=== PATIENT | female | born 1945 | race Caucasian/White ===

== ENCOUNTER → 2021-12-27 | Outpatient (CLI) | payer MEDICARE, BC | LOC: M RAD 09:00 | PROVIDERS: ATTEND Family Medicine | DX: Z12.2 Encounter for screening for malignant neoplasm of respiratory organs (principal); F17.211 Nicotine dependence, cigarettes, in remission; R91.8 Other nonspecific abnormal finding of lung field ==

== ENCOUNTER 2024-11-16 05:57 | Inpatient (IN) | payer MEDICARE, BC ==
[~2024-11-16] VITALS: Ht 152.4 cm; Wt 80.5 kg
[2024-11-16] VITALS (8 sets, daily range): BP systolic 113–131; BP diastolic 48–82; TEMP 97.3–98.1; O2SAT 93–98
[~2024-11-16 05:57] MED LIST: ACET-897 PO; ALEN70TA87 PO; AMLO25TA PO; B-12100010 PO; BAYE81TA10 PO; DONE10TA90 PO; ELIQ5TAB PO; FERR325T3 PO; FURO20TA2 PO; HYDR-643 PO; LOSA100T46 PO; METF-839 PO; MV-M1TAB13 PO; NEUR100C PO; OMEG10002 PO; PANT40TA29 PO; PROBCAP14 PO; RA M500C PO; SUCR1TA PO; TOPR25TA PO; VENTAER INH; VITA-158 PO
[2024-11-16] MEDS ORDERED: LR 1,000 ML IV SCH (06:05)
[2024-11-16] MEDS ORDERED: SUGAMMADEX SODIUM 500 MG/5 ML VIAL As Ordered ONE (06:12)
[2024-11-16] MEDS ORDERED: propofoL 200 MG/20 ML VIAL As Ordered ONE (06:12)
[2024-11-16] MEDS ORDERED: ONDANSETRON 4MG 2ML VIAL As Ordered ONE (06:12)
[2024-11-16] MEDS ORDERED: ROCURONIUM BROMIDE 50MG/5ML VIAL As Ordered ONE (06:12)
[2024-11-16] MEDS ORDERED: LIDOCAINE 2% 100MG/5ML SDV (FOR ANES.) As Ordered ONE (06:12)
[2024-11-16] MEDS ORDERED: GLYCOPYRROLATE INJ 0.2 MG/ML 2 ML VIAL As Ordered ONE (06:12)
[2024-11-16] MEDS ORDERED: ACETAMINOPHEN 1000MG/100ML IV BAG As Ordered ONE (06:13)
[2024-11-16] MEDS ORDERED: fentaNYL 100 MCG/2 ML INJECTION As Ordered ONE (06:15)
[2024-11-16] MEDS ORDERED: MIDAZOLAM INJ 2MG/2ML VIAL As Ordered ONE (06:16)
[2024-11-16 06:38] LABS: HEMOGLOBIN 11.7 g/dl (12.0-15.5); MEAN CORPUSCULAR HEMOGLOBIN 30.5 pg (27.0-33.0); MEAN CORPUSCULAR HGB CONC 32.5 g/dl (32.0-36.5); MEAN CORPUSCULAR VOLUME 93.8 fl (80.0-96.0); PLATELET COUNT, AUTOMATED 317 10^3/uL (150-450); RED BLOOD COUNT 3.84 10^6/uL (4.00-5.40); WHITE BLOOD COUNT 7.7 10^3/uL (4.0-10.0)
[2024-11-16] MEDS: CelecoXIB 400 MG CAP PO ONE (07:04)
[2024-11-16] MEDS: ALVIMOPAN 12 MG CAPSULE PO ONE (07:04)
[2024-11-16] MEDS: ceFAZolin SOD 2 GM IV ONCE IV ONE (07:53)
[2024-11-16] MEDS: metroNIDAZOLE 500 MG in IV 1 EA IV ONE (08:05)
[2024-11-16] MEDS: HEPARIN SOD 5000UNITS/ML 1ML VIAL/SYRINGE SQ ONE (08:15)
[2024-11-16] MEDS ORDERED: HYDROmorphone HCL 2MG/ML 1ML VIAL As Ordered ONE (08:31)
[2024-11-16] MEDS: INDOCYANINE GREEN 25MG VIAL (IC-GREEN) As Ordered ONE (09:45)
[2024-11-16] MEDS: ceFAZolin SODIUM 2 GM VIAL As Ordered ONE (11:55)
[2024-11-16] MEDS: BUPivacaine LIPOSOME/PF 266MG 20ML VIAL (13.3MG/ML)(EXPAREL) As Ordered ONE (12:02)
[2024-11-16] MEDS ORDERED: ONDANSETRON 4MG 2ML VIAL IV PRN (12:45)
[2024-11-16] MEDS ORDERED: HYDROMORPHONE HCL 0.5 MG/ 0.5 ML SYRINGE IV PRN (12:45)
[2024-11-16] MEDS ORDERED: oxyCODONE 5MG TAB PO PRN (12:45)
[2024-11-16] MEDS ORDERED: fentaNYL 100 MCG/2 ML INJECTION IV PRN (12:45)
[2024-11-16] MEDS: KETOROLAC 30 MG/ML 1ML VIAL IV SCH (15:23)
[2024-11-16] MEDS ORDERED: METO1TAB87 PO (16:13)
[2024-11-16] MEDS ORDERED: HOME MED LIST COMPLETE! XX SCH (16:20)
[2024-11-16] MEDS: LIDOCAINE 1% SDV 30ML VIAL As Ordered ONE (20:00)
[2024-11-16] MEDS: LR 1,000 ML IV SCH (20:35)
[2024-11-16] MEDS: ALVIMOPAN 12 MG CAPSULE PO SCH (20:51)
[2024-11-17 03:38] VITALS: BP 128/54; TEMP 98.4; O2SAT 98
[2024-11-17 05:01] LABS: CALCIUM LEVEL 8.2 MG/DL (8.3-10.6); CREATININE FOR GFR 1.33 MG/DL (0.55-1.30); GLOMERULAR FILTRATION RATE 40.2 (>32); POTASSIUM SERUM 4.3 MMOL/L (3.5-5.1)
[2024-11-17 05:02] LABS: BASO % 0.1 % (0.0-1.0); HEMATOCRIT 26.6 % (36.0-47.0); LYMPH % 9.8 % (24.0-44.0); MEAN CORPUSCULAR HEMOGLOBIN 29.6 pg (27.0-33.0); MEAN CORPUSCULAR HGB CONC 31.2 g/dl (32.0-36.5); MONO # 0.7 10^3/uL (0.0-0.8); MONO % 6.1 % (2.0-8.0); NEUTROPHILS # 8.9 10^3/uL (1.5-8.5); NEUTROPHILS % 83.7 % (36.0-66.0); WHITE BLOOD COUNT 10.6 10^3/uL (4.0-10.0)
[2024-11-17 05:08] LABS: HEMOGLOBIN 8.3 g/dl (12.0-15.5); PLATELET COUNT, AUTOMATED 198 10^3/uL (150-450)
[2024-11-17 08:00] VITALS: BP 141/57; TEMP 98.2; O2SAT 96
[2024-11-17] MEDS ORDERED: ALBUTEROL 90 MCG/ACT 8GM HFA INHALER INH PRN (08:35)
[2024-11-17] MEDS ORDERED: GLUCOSE 4 GM CHEW PO PRN (08:40)
[2024-11-17] MEDS ORDERED: GLUCAGON INJ 1MG VIAL SC PRN (08:40)
[2024-11-17] MEDS ORDERED: DEXTROSE 50% 50ML SYRINGE IV PRN (08:40)
[2024-11-17] MEDS: ASPIRIN 81MG ENTERIC TABLET PO SCH (08:48)
[2024-11-17] MEDS: CYANOCOBALAMIN 500 MCG TAB PO SCH (08:48)
[2024-11-17] MEDS: ENOXAPARIN 40MG/0.4ML SYRINGE (J1650 PER 10MG) SC SCH (08:49)
[2024-11-17] MEDS: PANTOPRAZOLE 40MG VIAL IV SCH (08:49)
[2024-11-17] MEDS: FERROUS SULFATE 325MG TAB PO SCH (08:49)
[2024-11-17] MEDS: LOSARTAN 50MG TABLET PO SCH (08:54)
[2024-11-17] MEDS: FUROSEMIDE 20 MG TAB PO SCH (08:54)
[2024-11-17] MEDS: GABAPENTIN 100 MG CAP PO SCH (08:54)
[2024-11-17] MEDS: ASCORBIC ACID 500 MG TAB PO SCH (08:55)
[2024-11-17] MEDS: METOPROLOL TART 25 MG TABLET PO SCH (08:55)
[2024-11-17] MEDS: OMEGA-3 1000MG CAPSULE PO SCH (08:55)
[2024-11-17] MEDS: LR 1,000 ML IV SCH (08:57)
[2024-11-17 09:30] VITALS: O2SAT 92
[2024-11-17 12:00] VITALS: BP 141/57; TEMP 97.7; O2SAT 92
[2024-11-17] MEDS: INSULIN LISPRO (NovoLOG) PER UNIT SC SCH (12:00)
[2024-11-17] MEDS: ACETAMINOPHEN 325 MG TAB PO PRN (12:34)
[2024-11-17 20:40] VITALS: BP 149/62; TEMP 99.7; O2SAT 90
[2024-11-17] MEDS: RAMELTEON 8 MG TAB PO PRN (21:55)
[2024-11-18] VITALS (10 sets, daily range): BP systolic 107–149; BP diastolic 49–66; TEMP 96.8–103; O2SAT 90–98
[2024-11-18 05:10] LABS: HEMATOCRIT 34.4 % (36.0-47.0); MEAN CORPUSCULAR HEMOGLOBIN 30.3 pg (27.0-33.0); MEAN CORPUSCULAR VOLUME 94.8 fl (80.0-96.0); PLATELET COUNT, AUTOMATED 240 10^3/uL (150-450); RED BLOOD COUNT 3.63 10^6/uL (4.00-5.40); WHITE BLOOD COUNT 7.2 10^3/uL (4.0-10.0)
[2024-11-18 05:34] LABS: CALCIUM LEVEL 8.4 MG/DL (8.3-10.6); CREATININE FOR GFR 1.42 MG/DL (0.55-1.30); GLOMERULAR FILTRATION RATE 37.2 (>32); POTASSIUM SERUM 4.7 MMOL/L (3.5-5.1)
[2024-11-18 05:48] LABS: LYMPHOCYTES 7 % (16-44); MONOCYTES 5 % (0-5); NEUTROPHILS 88 % (28-66)
[2024-11-18 05:49] LABS: PLATELET ESTIMATE NORMAL (NORMAL)
[2024-11-18 05:59] LABS: C REACTIVE PROTEIN QUANTITATIV 16.63 MG/DL (<1.0)
[2024-11-18] MEDS: NS 500 ML IV ONE (08:42)
[2024-11-18] MEDS ORDERED: ISOVUE-370 76% 100ML VIAL As Ordered ONE (09:17)
[2024-11-18] MEDS: LR 1,000 ML IV SCH (09:20)
[2024-11-18] MEDS ORDERED: PIPERACILLIN/TAZOBACTAM SOD 3.375 GM in DEXTROSE 5% (D5W) ADV/MINI-BAG 50 ML IV SCH (10:00)
[2024-11-18] MEDS: PIPERACILLIN/TAZOBACTAM SOD 2.25 GM in DEXTROSE 5% (D5W) ADV/MINI-BAG 50 ML IV SCH (10:30)
[2024-11-18] MEDS ORDERED: MORPHINE 2 MG/ML 1ML VIAL IV PRN (12:30)
[2024-11-18 12:42] LABS: HEMATOCRIT 33.4 % (36.0-47.0); HEMOGLOBIN 10.5 g/dl (12.0-15.5); MEAN CORPUSCULAR HEMOGLOBIN 29.8 pg (27.0-33.0); MEAN CORPUSCULAR HGB CONC 31.4 g/dl (32.0-36.5); MEAN CORPUSCULAR VOLUME 94.9 fl (80.0-96.0); PLATELET COUNT, AUTOMATED 224 10^3/uL (150-450); RED BLOOD COUNT 3.52 10^6/uL (4.00-5.40); WHITE BLOOD COUNT 8.8 10^3/uL (4.0-10.0)
[2024-11-18] MEDS: ACETAMINOPHEN *IV* 1,000 MG in IV 1 EA IV ONE (12:55)
[2024-11-18 12:59] LABS: CREATININE FOR GFR 1.6 MG/DL (0.55-1.30); GLOMERULAR FILTRATION RATE 32.2 (>32); POTASSIUM SERUM 4.5 MMOL/L (3.5-5.1)
[2024-11-18 13:10] LABS: C REACTIVE PROTEIN QUANTITATIV 21.11 MG/DL (<1.0)
[2024-11-18 13:25] LABS: ATYPICAL LYMPH 3 % (0-5); LYMPHOCYTES 10 % (16-44); METAMYELOCYTES 1 % (0-0); MONOCYTES 1 % (0-5); NEUTROPHILS 67 % (28-66)
[2024-11-18 13:26] LABS: HYPOCHROMASIA 1+; PLATELET ESTIMATE NORMAL (NORMAL); TOXIC VACUOLATION 1+
[2024-11-18] MEDS: PIPERACILLIN/TAZOBACTAM SOD 3.375 GM in DEXTROSE 5% (D5W) ADV/MINI-BAG 50 ML IV SCH (16:00)
[2024-11-18] MEDS: ZOSYN 3.375GM VIAL As Ordered ONE (16:30)
[2024-11-18] MEDS ORDERED: PHENYLEPHRINE 10MG/ML 1ML VIAL As Ordered ONE (17:04)
[2024-11-18] MEDS ORDERED: ePHEDrine SULFATE 25 MG/5 ML(5MG/ML) SYRINGE As Ordered ONE (18:43)
[2024-11-18] MEDS ORDERED: PHENYLephrine 500MCG 5ML (100MCG/ML) SYRINGE As Ordered ONE (18:43)
[2024-11-18] MEDS: LIDOCAINE 1% MDV 20ML VIAL As Ordered ONE (20:00)
[2024-11-19] VITALS (8 sets, daily range): BP systolic 106–118; BP diastolic 52–57; TEMP 97.2–98.7; O2SAT 91–96
[2024-11-19 05:12] LABS: BASO # 0.1 10^3/uL (0.0-0.2); BASO % 0.6 % (0.0-1.0); EOS % 0.3 % (0.0-3.0); HEMATOCRIT 30.6 % (36.0-47.0); HEMOGLOBIN 9.7 g/dl (12.0-15.5); LYMPH # 0.6 10^3/uL (1.5-5.0); MEAN CORPUSCULAR HGB CONC 31.7 g/dl (32.0-36.5); MEAN CORPUSCULAR VOLUME 94.7 fl (80.0-96.0); MONO # 0.3 10^3/uL (0.0-0.8); MONO % 3.4 % (2.0-8.0); NEUTROPHILS % 87.4 % (36.0-66.0); PLATELET COUNT, AUTOMATED 187 10^3/uL (150-450); RED BLOOD COUNT 3.23 10^6/uL (4.00-5.40)
[2024-11-19 05:30] LABS: CALCIUM LEVEL 7.3 MG/DL (8.3-10.6); CREATININE FOR GFR 1.5 MG/DL (0.55-1.30); GLOMERULAR FILTRATION RATE 34.8 (>32); POTASSIUM SERUM 5.3 MMOL/L (3.5-5.1)
[2024-11-19 05:44] LABS: C REACTIVE PROTEIN QUANTITATIV 32.29 MG/DL (<1.0)
[2024-11-19 11:54] LABS: CALCIUM LEVEL 7.2 MG/DL (8.3-10.6); CREATININE FOR GFR 1.49 MG/DL (0.55-1.30); GLOMERULAR FILTRATION RATE 35.1 (>32); MAGNESIUM LEVEL 1.2 MG/DL (1.8-2.4); POTASSIUM SERUM 4.4 MMOL/L (3.5-5.1)
[2024-11-19 12:08] LABS: APPEARANCE, URINE HAZY (CLEAR); BACTERIA, URINE AUTO 1+ (NEGATIVE); BILIRUBIN, URINE AUTO NEGATIVE (NEGATIVE); BLOOD, URINE BLOOD 1+ (NEGATIVE); COLOR, URINE YELLOW (YELLOW); GLUCOSE, URINE (UA) AUTO NEGATIVE (NEGATIVE); KETONE, URINE AUTO NEGATIVE (NEGATIVE); LEUKOCYTE ESTERASE, URINE AUTO NEGATIVE (NEGATIVE); MUCUS, URINE SMALL (NEGATIVE); NITRITE, URINE AUTO NEGATIVE (NEGATIVE); PROTEIN, URINE AUTO NEGATIVE (NEGATIVE); RBC, URINE AUTO 9 /HPF (0-3); SQUAMOUS EPITHELIAL CELL UR AU 0 /HPF (0-6); URIC ACID CRYSTALS SMALL; UROBILINOGEN, URINE AUTO 0.2 mg/dL (0.0-2.0); WBC, URINE AUTO 4 /HPF (0-3)
[2024-11-19] MEDS: MORPHINE 2 MG/ML 1ML VIAL IV PRN (14:32)
[2024-11-19] MEDS: MAG SULF 1GM/100ML (MAG RUN) 1 GM in IV 1 EA IV SCH (17:34)
[2024-11-20 04:03] VITALS: BP 131/60; TEMP 98.8; O2SAT 94
[2024-11-20 06:17] LABS: BASO % 0.3 % (0.0-1.0); EOS # 0.1 10^3/uL (0.0-0.5); HEMATOCRIT 28.4 % (36.0-47.0); HEMOGLOBIN 8.9 g/dl (12.0-15.5); LYMPH # 1.1 10^3/uL (1.5-5.0); LYMPH % 9.4 % (24.0-44.0); MEAN CORPUSCULAR HEMOGLOBIN 29.3 pg (27.0-33.0); MEAN CORPUSCULAR HGB CONC 31.3 g/dl (32.0-36.5); MEAN CORPUSCULAR VOLUME 93.4 fl (80.0-96.0); MONO # 0.7 10^3/uL (0.0-0.8); NEUTROPHILS # 9.5 10^3/uL (1.5-8.5); NEUTROPHILS % 82.6 % (36.0-66.0); PLATELET COUNT, AUTOMATED 216 10^3/uL (150-450); RED BLOOD COUNT 3.04 10^6/uL (4.00-5.40); WHITE BLOOD COUNT 11.5 10^3/uL (4.0-10.0)
[2024-11-20 06:42] LABS: CALCIUM LEVEL 7.8 MG/DL (8.3-10.6); CREATININE FOR GFR 1.41 MG/DL (0.55-1.30); GLOMERULAR FILTRATION RATE 37.5 (>32); MAGNESIUM LEVEL 2.8 MG/DL (1.8-2.4); POTASSIUM SERUM 4.4 MMOL/L (3.5-5.1)
[2024-11-20 07:00] LABS: C REACTIVE PROTEIN QUANTITATIV 32.32 MG/DL (<1.0)
[2024-11-20] MEDS: MORPHINE 4 MG/ML 1ML VIAL IV PRN (09:33)
[2024-11-20] MEDS ORDERED: PERCOCET 5MG/325MG TAB PO PRN (11:05)
[2024-11-20 12:00] VITALS: BP 149/59; TEMP 98.6; O2SAT 96
[2024-11-20] MEDS: ALBUTEROL SULFATE 2.5MG/0.5ML INH CONCENTRATE NEB SOLN INH SCH (13:10)
[2024-11-20] MEDS: SODIUM CHLORIDE HYPERTONIC 3% 4ML NEB SOL INH SCH (13:10)
[2024-11-20] MEDS: NS 500 ML IV ONE (17:49)
[2024-11-20 20:22] VITALS: BP 144/56; TEMP 98.6; O2SAT 93
[2024-11-20 23:02] VITALS: BP 141/57; TEMP 102.6; O2SAT 94
[2024-11-21] VITALS (18 sets, daily range): BP systolic 132–164; BP diastolic 58–80; TEMP 97.5–101.8; O2SAT 92–97
[2024-11-21] MEDS: LR 1,000 ML IV SCH (00:27)
[2024-11-21 06:16] LABS: BASO % 0.2 % (0.0-1.0); EOS # 0.2 10^3/uL (0.0-0.5); EOS % 1.3 % (0.0-3.0); HEMATOCRIT 27.9 % (36.0-47.0); HEMOGLOBIN 8.8 g/dl (12.0-15.5); LYMPH # 1.2 10^3/uL (1.5-5.0); LYMPH % 9.6 % (24.0-44.0); MEAN CORPUSCULAR HEMOGLOBIN 30.1 pg (27.0-33.0); MEAN CORPUSCULAR HGB CONC 31.5 g/dl (32.0-36.5); MEAN CORPUSCULAR VOLUME 95.5 fl (80.0-96.0); MONO # 1.1 10^3/uL (0.0-0.8); MONO % 8.3 % (2.0-8.0); NEUTROPHILS # 10.3 10^3/uL (1.5-8.5); NEUTROPHILS % 79.8 % (36.0-66.0); PLATELET COUNT, AUTOMATED 215 10^3/uL (150-450); RED BLOOD COUNT 2.92 10^6/uL (4.00-5.40); WHITE BLOOD COUNT 12.9 10^3/uL (4.0-10.0)
[2024-11-21 06:42] LABS: CALCIUM LEVEL 7.8 MG/DL (8.3-10.6); CREATININE FOR GFR 1.24 MG/DL (0.55-1.30); GLOMERULAR FILTRATION RATE 43.7 (>32); POTASSIUM SERUM 3.9 MMOL/L (3.5-5.1)
[2024-11-21 06:53] LABS: C REACTIVE PROTEIN QUANTITATIV 25.08 MG/DL (<1.0)
[2024-11-21] MEDS: APIXABAN 5 MG TAB PO SCH (09:09)
[2024-11-21] MEDS: ACETAMINOPHEN *IV* 500 MG in IV 1 EA IV ONE (14:56)
[2024-11-21 15:41] LABS: MAGNESIUM LEVEL 2.3 MG/DL (1.8-2.4)
[2024-11-21] MEDS: METOPROLOL 5 MG/5 ML VIAL IV SCH (15:55)
[2024-11-21] MEDS: SUCRALFATE 1 GM TAB PO SCH (17:52)
[2024-11-21] MEDS: DONEPEZIL 5 MG TAB PO SCH (20:33)
[2024-11-21] MEDS: METOPROLOL TART 25 MG TABLET PO ONE (23:55)
[2024-11-22] VITALS (7 sets, daily range): BP systolic 145–166; BP diastolic 60–74; TEMP 97–98.3; O2SAT 96–100
[2024-11-22 04:58] LABS: BASO % 0.2 % (0.0-1.0); EOS # 0.2 10^3/uL (0.0-0.5); EOS % 1.4 % (0.0-3.0); HEMATOCRIT 28.7 % (36.0-47.0); LYMPH % 7.8 % (24.0-44.0); MEAN CORPUSCULAR HEMOGLOBIN 29.2 pg (27.0-33.0); MEAN CORPUSCULAR HGB CONC 31.4 g/dl (32.0-36.5); MEAN CORPUSCULAR VOLUME 93.2 fl (80.0-96.0); MONO # 1.4 10^3/uL (0.0-0.8); MONO % 10.6 % (2.0-8.0); NEUTROPHILS % 78.6 % (36.0-66.0); PLATELET COUNT, AUTOMATED 264 10^3/uL (150-450); RED BLOOD COUNT 3.08 10^6/uL (4.00-5.40); WHITE BLOOD COUNT 12.8 10^3/uL (4.0-10.0)
[2024-11-22 05:22] LABS: CALCIUM LEVEL 8.1 MG/DL (8.3-10.6); CREATININE FOR GFR 0.91 MG/DL (0.55-1.30); GLOMERULAR FILTRATION RATE 63.4 (>32); POTASSIUM SERUM 3.9 MMOL/L (3.5-5.1)
[2024-11-22 05:29] LABS: PROCALCITONIN 6.66 ng/ml
[2024-11-22 05:35] LABS: C REACTIVE PROTEIN QUANTITATIV 22.39 MG/DL (<1.0)
[2024-11-22] MEDS: GASTROGRAFIN SOLUTION 30ML PO SCH (09:02)
[2024-11-22] MEDS: PERCOCET 5MG/325MG TAB PO PRN (09:25)
[2024-11-22] MEDS ORDERED: ALBUTEROL SULFATE 2.5MG/0.5ML INH CONCENTRATE NEB SOLN INH PRN (09:30)
[2024-11-22] MEDS: ONDANSETRON 4MG 2ML VIAL IV PRN (10:30)
[2024-11-22] MEDS: amLODIPine 5 MG TAB PO SCH (11:29)
[2024-11-22] MEDS: PANTOPRAZOLE 40MG TAB PO SCH (11:32)
[2024-11-22] MEDS: predniSONE 20 MG TAB PO SCH (11:49)
[2024-11-22] MEDS: METAMUCIL PACKET PO SCH (12:40)
[2024-11-22] MEDS: LOMOTIL 2.5MG/0.025MG TABLET PO SCH (16:24)
[2024-11-22] MEDS: DOXYCYCLINE HYCLATE 100MG TABLET PO SCH (20:22)
[2024-11-23 03:17] VITALS: BP 150/70; TEMP 97.8; O2SAT 98
[2024-11-23 06:28] LABS: BASO % 0.1 % (0.0-1.0); HEMATOCRIT 30.6 % (36.0-47.0); HEMOGLOBIN 9.7 g/dl (12.0-15.5); LYMPH % 11.5 % (24.0-44.0); MEAN CORPUSCULAR HEMOGLOBIN 29.8 pg (27.0-33.0); MEAN CORPUSCULAR HGB CONC 31.7 g/dl (32.0-36.5); MEAN CORPUSCULAR VOLUME 94.2 fl (80.0-96.0); MONO # 0.3 10^3/uL (0.0-0.8); MONO % 3.6 % (2.0-8.0); NEUTROPHILS # 7.3 10^3/uL (1.5-8.5); PLATELET COUNT, AUTOMATED 314 10^3/uL (150-450); RED BLOOD COUNT 3.25 10^6/uL (4.00-5.40); WHITE BLOOD COUNT 8.8 10^3/uL (4.0-10.0)
[2024-11-23 06:47] LABS: C REACTIVE PROTEIN QUANTITATIV 14.76 MG/DL (<1.0); CALCIUM LEVEL 8.5 MG/DL (8.3-10.6); CREATININE FOR GFR 0.86 MG/DL (0.55-1.30); GLOMERULAR FILTRATION RATE 67.8 (>32); POTASSIUM SERUM 4.8 MMOL/L (3.5-5.1)
[2024-11-23 07:35] VITALS: BP 182/82; TEMP 97.3; O2SAT 93
[2024-11-23] MEDS ORDERED: PILL CUTTER 1 EACH XX ONE (08:38)
[2024-11-23 12:00] VITALS: BP 144/66; TEMP 97.4; O2SAT 96
[2024-11-23 19:18] VITALS: BP 143/64; TEMP 97.5; O2SAT 94
[2024-11-23 23:14] VITALS: BP 141/67; TEMP 97.4; O2SAT 95
[2024-11-24 03:19] VITALS: BP 159/71; TEMP 97.7; O2SAT 95
[2024-11-24 07:30] VITALS: BP 162/72; TEMP 97.9; O2SAT 96
[2024-11-24 07:40] LABS: BASO % 0.1 % (0.0-1.0); EOS % 0.1 % (0.0-3.0); HEMOGLOBIN 9.9 g/dl (12.0-15.5); LYMPH # 2.2 10^3/uL (1.5-5.0); LYMPH % 15.7 % (24.0-44.0); MEAN CORPUSCULAR HEMOGLOBIN 29.7 pg (27.0-33.0); MEAN CORPUSCULAR HGB CONC 31.9 g/dl (32.0-36.5); MEAN CORPUSCULAR VOLUME 93.1 fl (80.0-96.0); MONO # 1.1 10^3/uL (0.0-0.8); MONO % 7.8 % (2.0-8.0); NEUTROPHILS # 10.6 10^3/uL (1.5-8.5); NEUTROPHILS % 74.1 % (36.0-66.0); PLATELET COUNT, AUTOMATED 443 10^3/uL (150-450); RED BLOOD COUNT 3.33 10^6/uL (4.00-5.40); WHITE BLOOD COUNT 14.3 10^3/uL (4.0-10.0)
[2024-11-24 08:18] LABS: C REACTIVE PROTEIN QUANTITATIV 3.87 MG/DL (<1.0); CALCIUM LEVEL 8.7 MG/DL (8.3-10.6); CREATININE FOR GFR 1.07 MG/DL (0.55-1.30); GLOMERULAR FILTRATION RATE 52.2 (>32); MAGNESIUM LEVEL 1.7 MG/DL (1.8-2.4)
[2024-11-24 08:25] LABS: PROCALCITONIN 1.89 ng/ml
[2024-11-24 08:28] VITALS: BP 162/72
[2024-11-24] MEDS: MAG SULF 1GM/100ML (MAG RUN) 1 GM in IV 1 EA IV ONE (10:49)
[2024-11-24 11:39] VITALS: BP 162/68; TEMP 97.3; O2SAT 95
[2024-11-24] MEDS ORDERED: LOPR1TAB6 PO (12:01)
[2024-11-24] MEDS ORDERED: NORV5TAB PO (12:01)
[2024-12-01] MEDS ORDERED: DIPH1TAB80 PO (11:42)
[2024-12-01] MEDS ORDERED: ACET-683 PO (11:42)
[2024-12-01] MEDS ORDERED: META1POW PO (11:42)
[2024-12-01] MEDS ORDERED: METF-839 PO (11:42)
== END 2024-11-24 13:40 | DRG 329 ==
LOC: M OR 05:57 → M MSPAV 14:05 → M PCU 11-21 15:25
PROVIDERS: ADMIT Surgery; ATTEND Internal Medicine
PROC: 30233J1 Transfusion of Nonautologous Serum Albumin into Peripheral Vein, Percutaneous Approach (ICD-10-PCS; 2024-11-16)
PROC: 8E0W4CZ Robotic Assisted Procedure of Trunk Region, Percutaneous Endoscopic Approach (ICD-10-PCS; 2024-11-16)
PROC: 0DTN4ZZ Resection of Sigmoid Colon, Percutaneous Endoscopic Approach (ICD-10-PCS; principal; 2024-11-16 07:30)
PROC: 0DBP4ZZ Excision of Rectum, Percutaneous Endoscopic Approach (ICD-10-PCS; 2024-11-18)
PROC: 0DU Gastrointestinal System, Supplement (ICD-10-PCS; 2024-11-18)
PROC: 0D1B4Z4 Bypass Ileum to Cutaneous, Percutaneous Endoscopic Approach (ICD-10-PCS; 2024-11-18)
PROC: B246ZZZ Ultrasonography of Right and Left Heart (ICD-10-PCS; 2024-11-20)
DX: K57.32 Diverticulitis of large intestine without perforation or abscess without bleeding (principal); J69.0 Pneumonitis due to inhalation of food and vomit; J15.69 Pneumonia due to other Gram-negative bacteria; N17.9 Acute kidney failure, unspecified; J44.1 Chronic obstructive pulmonary disease with (acute) exacerbation; K91.89 Other postprocedural complications and disorders of digestive system; D62 Acute posthemorrhagic anemia; I10 Essential (primary) hypertension; E11.9 Type 2 diabetes mellitus without complications; E78.00 Pure hypercholesterolemia, unspecified; I49.5 Sick sinus syndrome; E78.5 Hyperlipidemia, unspecified; I48.91 Unspecified atrial fibrillation; R33.9 Retention of urine, unspecified; E87.5 Hyperkalemia; G31.84 Mild cognitive impairment of uncertain or unknown etiology; E87.6 Hypokalemia; Z98.41 Cataract extraction status, right eye; Z98.42 Cataract extraction status, left eye; Z79.84 Long term (current) use of oral hypoglycemic drugs; Z79.899 Other long term (current) drug therapy; Z79.82 Long term (current) use of aspirin; Z79.01 Long term (current) use of anticoagulants

== ENCOUNTER 2025-02-11 06:13 | Inpatient (IN) | payer MEDICARE, BC ==
[~2025-02-11] VITALS: Ht 152.4 cm; Wt 69.7 kg
[2025-02-11] VITALS (7 sets, daily range): BP systolic 107–121; BP diastolic 55–84; TEMP 97–97.3; O2SAT 94–96
[~2025-02-11 06:13] MED LIST changes: +ACET-683 PO; +ACET-840 PO; +AMLO1TAB24 PO; +CEFD1CAP9 PO; +DIPH1TAB80 PO; +LOPE2CAP PO; +LOPR1TAB6 PO; +MEGE20TA3 PO; +META1POW PO; +METF500T13 PO; +METO10TA3 PO; +METO1TAB87 PO; +METO50TA7 PO; +NORV5TAB PO; +ONDA-282 PO; +QC F0.52 PO; +SERT50TA29 PO; +SODI650T PO; +SUCR1TAB56 PO
[2025-02-11] MEDS ORDERED: LR 1,000 ML IV SCH (06:40)
[2025-02-11] MEDS: CelecoXIB 400 MG CAP PO ONE (07:01)
[2025-02-11] MEDS ORDERED: ETOMIDATE 20 MG/10 ML VIAL As Ordered ONE (07:17)
[2025-02-11] MEDS ORDERED: MIDAZOLAM INJ 2 MG/2 ML VIAL As Ordered ONE (07:18)
[2025-02-11] MEDS ORDERED: ROCURONIUM BROMIDE 50MG/5ML VIAL As Ordered ONE (07:19)
[2025-02-11] MEDS ORDERED: LIDOCAINE 2% 100 MG/5 ML SDV (FOR ANES.) As Ordered ONE (07:20)
[2025-02-11] MEDS: ceFAZolin SOD 2 GM IV ONCE IV ONE (07:25)
[2025-02-11] MEDS ORDERED: ONDANSETRON 4MG 2ML VIAL As Ordered ONE (07:42)
[2025-02-11] MEDS ORDERED: dexAMETHasone 4 MG/ML 1 ML VIAL As Ordered ONE (07:42)
[2025-02-11] MEDS ORDERED: HYDROmorphone HCL 2 MG/ML 1 ML VIAL As Ordered ONE (07:49)
[2025-02-11] MEDS ORDERED: KETOROLAC 30 MG/ML 1 ML VIAL As Ordered ONE (07:50)
[2025-02-11] MEDS ORDERED: SUGAMMADEX SODIUM 200 MG/2 ML VIAL As Ordered ONE (07:50)
[2025-02-11] MEDS: metroNIDAZOLE 500 MG in IV 1 EA IV ONE (08:05)
[2025-02-11] MEDS ORDERED: ONDA-83 PO (08:24)
[2025-02-11] MEDS ORDERED: LOPE1CAP5 PO (08:24)
[2025-02-11] MEDS ORDERED: AMLO1TAB24 PO (08:24)
[2025-02-11] MEDS ORDERED: METO1TAB32 PO (08:24)
[2025-02-11] MEDS ORDERED: SODI650T PO (08:24)
[2025-02-11] MEDS ORDERED: HOME MED LIST COMPLETE! XX SCH (08:25)
[2025-02-11] MEDS: LIDOCAINE 1% SDV 30 ML VIAL As Ordered ONE (09:19)
[2025-02-11] MEDS: LR 1,000 ML IV SCH ×2 (09:25→11:33)
[2025-02-11] MEDS ORDERED: HYDROMORPHONE HCL 0.5 MG/0.5 ML SYRINGE IV PRN (09:25)
[2025-02-11] MEDS ORDERED: ONDANSETRON 4MG 2ML VIAL IV PRN ×2 (09:25)
[2025-02-11] MEDS ORDERED: PERCOCET 5MG/325MG TAB PO PRN (09:25)
[2025-02-11] MEDS ORDERED: ACETAMINOPHEN 325 MG TAB PO PRN (09:25)
[2025-02-11] MEDS: metFORMIN 500 MG TAB PO SCH (11:35)
[2025-02-11] MEDS: PERCOCET 5MG/325MG TAB PO PRN (11:47)
[2025-02-11] MEDS: GABAPENTIN 100 MG CAP PO SCH (16:34)
[2025-02-11] MEDS: SUCRALFATE 1 GM TAB PO SCH (16:34)
[2025-02-11] MEDS: KETOROLAC 30 MG/ML 1 ML VIAL IV SCH (18:16)
[2025-02-11] MEDS: SODIUM BICARBONATE 325 MG TAB PO SCH (20:19)
[2025-02-11] MEDS: DOCUSATE SODIUM 100 MG CAPSULE PO SCH (20:20)
[2025-02-11] MEDS: ALVIMOPAN 12 MG CAPSULE PO SCH (20:20)
[2025-02-11] MEDS: amLODIPine 5 MG TAB PO SCH (20:22)
[2025-02-12 03:46] VITALS: BP 119/54; TEMP 97.3; O2SAT 97
[2025-02-12 06:14] LABS: BASO # 0.0 10^3/uL (0.0-0.2); BASO % 0.2 % (0.0-1.0); EOS # 0.0 10^3/uL (0.0-0.5); EOS % 0.4 % (0.0-3.0); LYMPH # 0.8 10^3/uL (1.5-5.0); LYMPH % 7.6 % (24.0-44.0); MONO # 0.9 10^3/uL (0.0-0.8); MONO % 8.6 % (2.0-8.0); NEUTROPHILS # 8.3 10^3/uL (1.5-8.5); NEUTROPHILS % 82.9 % (36.0-66.0); PLATELET COUNT, AUTOMATED 229 10^3/uL (150-450)
[2025-02-12 06:58] LABS: CALCIUM LEVEL 7.5 MG/DL (8.3-10.6); CARBON DIOXIDE LEVEL 20.0 MMOL/L (20-31); CHLORIDE LEVEL 110.0 MMOL/L (98-107); CREATININE FOR GFR 1.09 MG/DL (0.55-1.30); GLOMERULAR FILTRATION RATE 51.0 (>32); POTASSIUM SERUM 4.0 MMOL/L (3.5-5.1); SODIUM LEVEL 143.0 MMOL/L (136-145)
[2025-02-12 08:00] VITALS: BP 117/52; TEMP 97.3; O2SAT 96
[2025-02-12] MEDS: NYSTATIN 100,000 UNITS/GM TOPICAL PWD 15 GM TOP SCH (09:00)
[2025-02-12] MEDS: PANTOPRAZOLE 40MG VIAL IV SCH (09:02)
[2025-02-12] MEDS: FERROUS SULFATE 325 MG TAB PO SCH (09:04)
[2025-02-12] MEDS: SERTRALINE HCL 50 MG TAB PO SCH (09:04)
[2025-02-12] MEDS: METOPROLOL SUCC. 25 MG *XL* TAB PO SCH (09:04)
[2025-02-12] MEDS: ASPIRIN 81 MG ENTERIC TABLET PO SCH (09:05)
[2025-02-12] MEDS: OMEGA-3 1000 MG CAPSULE PO SCH (09:05)
[2025-02-12] MEDS: ENOXAPARIN 30 MG/0.3 ML SYRINGE (J1650 PER 10MG) SC SCH (09:06)
[2025-02-12 11:57] VITALS: BP 123/53; TEMP 97.3; O2SAT 91
[2025-02-12 16:00] VITALS: BP 134/59; TEMP 97.7; O2SAT 99
[2025-02-12] MEDS: METAMUCIL PACKET PO SCH (18:11)
[2025-02-12 19:31] VITALS: BP 136/75; TEMP 97.3; O2SAT 97
[2025-02-13 03:12] VITALS: BP_SYST 130; BP_SYST 137; BP_DIAS 57; BP_DIAS 60; TEMP 97.5; O2SAT 99
[2025-02-13] MEDS: LOPERAMIDE 2 MG CAPLET PO PRN (10:24)
[2025-02-13 12:18] VITALS: BP 145/67; TEMP 97.2; O2SAT 97
[2025-02-13 19:30] VITALS: BP 130/49; TEMP 97.7; O2SAT 97
[2025-02-14 04:00] VITALS: BP 141/64; TEMP 97.7; O2SAT 98
[2025-02-14 06:32] LABS: BASO # 0.0 10^3/uL (0.0-0.2); BASO % 0.3 % (0.0-1.0); EOS # 0.2 10^3/uL (0.0-0.5); EOS % 2.2 % (0.0-3.0); LYMPH # 1.2 10^3/uL (1.5-5.0); LYMPH % 15.9 % (24.0-44.0); MONO # 0.6 10^3/uL (0.0-0.8); MONO % 8.2 % (2.0-8.0); NEUTROPHILS # 5.7 10^3/uL (1.5-8.5); NEUTROPHILS % 73.0 % (36.0-66.0); PLATELET COUNT, AUTOMATED 215 10^3/uL (150-450)
[2025-02-14 07:05] LABS: CALCIUM LEVEL 8.0 MG/DL (8.3-10.6); CARBON DIOXIDE LEVEL 20.0 MMOL/L (20-31); CHLORIDE LEVEL 114.0 MMOL/L (98-107); CREATININE FOR GFR 0.88 MG/DL (0.55-1.30); GLOMERULAR FILTRATION RATE 66.0 (>32); POTASSIUM SERUM 3.6 MMOL/L (3.5-5.1); SODIUM LEVEL 147.0 MMOL/L (136-145)
[2025-02-14 07:07] LABS: C REACTIVE PROTEIN QUANTITATIV 14.21 MG/DL (<1.0)
[2025-02-14 09:38] VITALS: BP 108/51; TEMP 97.3; O2SAT 98
[2025-02-14 10:04] VITALS: BP 108/51
== END 2025-02-14 18:39 | disposition home or self-care (01) | DRG 331 ==
LOC: M OR 06:13 → M MSPAV 10:35
PROVIDERS: ADMIT Surgery; ATTEND Surgery
PROC: 0DBB0ZZ Excision of Ileum, Open Approach (ICD-10-PCS; principal; 2025-02-11 07:30)
DX: Z43.2 Encounter for attention to ileostomy (principal); I10 Essential (primary) hypertension; E11.9 Type 2 diabetes mellitus without complications; D64.9 Anemia, unspecified; E78.00 Pure hypercholesterolemia, unspecified; Z98.41 Cataract extraction status, right eye; Z98.42 Cataract extraction status, left eye; Z90.49 Acquired absence of other specified parts of digestive tract; Z79.84 Long term (current) use of oral hypoglycemic drugs; Z79.51 Long term (current) use of inhaled steroids; Z79.01 Long term (current) use of anticoagulants; Z79.899 Other long term (current) drug therapy

== ENCOUNTER → 2025-02-21 | Outpatient (CLI) | payer MEDICARE, BC ==
[~2025-02-21] MED LIST changes: +AMOX500T2 PO; +LOPE1CAP5 PO; +METO1TAB32 PO; +ONDA-83 PO; +PROBCAP2 PO
[2025-02-21 16:11] LABS: BASO # 0.1 10^3/uL (0.0-0.2); BASO % 0.3 % (0.0-1.0); EOS # 0.0 10^3/uL (0.0-0.5); EOS % 0.1 % (0.0-3.0); LYMPH # 1.8 10^3/uL (1.5-5.0); LYMPH % 6.0 % (24.0-44.0); MONO # 1.4 10^3/uL (0.0-0.8); MONO % 4.9 % (2.0-8.0); NEUTROPHILS # 25.4 10^3/uL (1.5-8.5); NEUTROPHILS % 87.6 % (36.0-66.0); PLATELET COUNT, AUTOMATED 430 10^3/uL (150-450)
[2025-02-21 18:07] LABS: C REACTIVE PROTEIN QUANTITATIV 23.97 MG/DL (<1.0); CALCIUM LEVEL 7.9 MG/DL (8.3-10.6); CARBON DIOXIDE LEVEL 26.0 MMOL/L (20-31); CHLORIDE LEVEL 105.0 MMOL/L (98-107); CREATININE FOR GFR 0.81 MG/DL (0.55-1.30); GLOMERULAR FILTRATION RATE 72.9 (>32); POTASSIUM SERUM 2.9 MMOL/L (3.5-5.1); SODIUM LEVEL 145.0 MMOL/L (136-145)
== END ==
LOC: M LAB 15:33
PROVIDERS: ATTEND Surgery
DX: K57.32 Diverticulitis of large intestine without perforation or abscess without bleeding (principal)

== ENCOUNTER 2025-02-22 11:32 | Inpatient (IN) | payer MEDICARE, BC ==
[~2025-02-22] VITALS: Ht 152.4 cm; Wt 68.4 kg
[~2025-02-22 11:32] MED LIST changes: -AMOX500T2 PO; -PROBCAP2 PO
[2025-02-22 13:58] LABS: BASO # 0.1 10^3/uL (0.0-0.2); BASO % 0.2 % (0.0-1.0); EOS # 0.0 10^3/uL (0.0-0.5); EOS % 0.1 % (0.0-3.0); LYMPH # 1.9 10^3/uL (1.5-5.0); LYMPH % 6.7 % (24.0-44.0); MONO # 1.6 10^3/uL (0.0-0.8); MONO % 5.6 % (2.0-8.0); NEUTROPHILS # 24.6 10^3/uL (1.5-8.5); NEUTROPHILS % 85.9 % (36.0-66.0); PLATELET COUNT, AUTOMATED 377 10^3/uL (150-450)
[2025-02-22 14:04] LABS: ALT/SGPT 10.0 U/L (7.0-40); AST/SGOT 18.0 U/L (<34); CALCIUM LEVEL 7.4 MG/DL (8.3-10.6); CARBON DIOXIDE LEVEL 22.0 MMOL/L (20-31); CHLORIDE LEVEL 105.0 MMOL/L (98-107); CREATININE FOR GFR 0.82 MG/DL (0.55-1.30); GLOMERULAR FILTRATION RATE 71.8 (>32); POTASSIUM SERUM 2.9 MMOL/L (3.5-5.1); SODIUM LEVEL 143.0 MMOL/L (136-145)
[2025-02-22] MEDS ORDERED: ISOVUE-370 76% 100 ML VIAL As Ordered ONE (14:10)
[2025-02-22] MEDS: POTASSIUM CHLORIDE 10MEQ SR TABLET PO ONE (15:20)
[2025-02-22] MEDS: ACETAMINOPHEN 325 MG TAB PO ONE (17:23)
[2025-02-22] MEDS ORDERED: HOME MED LIST COMPLETE! XX SCH (17:25)
[2025-02-22] MEDS: PIPERACILLIN/TAZOBACTAM SOD 3.375 GM in DEXTROSE 5% (D5W) ADV/MINI-BAG 50 ML IV ONE (17:51)
[2025-02-22] MEDS: NS (Normal Saline) 0.9% 1,000 ML IV SCH ×2 (17:51→19:36)
[2025-02-22] MEDS ORDERED: MAALOX 30 ML SUSP *UDC PO PRN (19:10)
[2025-02-22] MEDS ORDERED: GLUCAGON INJ 1 MG VIAL SC PRN (19:10)
[2025-02-22] MEDS ORDERED: ONDANSETRON 4MG TAB PO PRN (19:10)
[2025-02-22] MEDS ORDERED: MOM 30 ML SUSPENSION UDC PO PRN (19:10)
[2025-02-22] MEDS ORDERED: DEXTROSE 50% 50 ML SYRINGE IV PRN (19:10)
[2025-02-22] MEDS ORDERED: GLUCOSE 4 GM CHEW PO PRN (19:10)
[2025-02-22] MEDS ORDERED: LEVALBUTEROL 1.25 MG 0.5ML CONCENTRATE NEB INH PRN (19:25)
[2025-02-22] MEDS: KCL 10MEQ/100ML SWI (KRUN) 10 MEQ in IV 1 EA IV SCH (19:34)
[2025-02-22] MEDS: IPRATROPIUM 0.5 MG/ALBUTEROL 2.5 MG INH SOL UD 3 ML NEB SCH (20:00)
[2025-02-22 21:02] LABS: INR 2.11
[2025-02-22 21:10] VITALS: BP 112/62; TEMP 98.1; O2SAT 94
[2025-02-22] MEDS: SODIUM BICARBONATE 325 MG TAB PO SCH (22:08)
[2025-02-22] MEDS: MAGNESIUM OXIDE 400 MG TAB PO SCH (22:08)
[2025-02-22] MEDS: OMEGA-3 1000 MG CAPSULE PO SCH (22:08)
[2025-02-22] MEDS: GABAPENTIN 100 MG CAP PO SCH (22:09)
[2025-02-22] MEDS: amLODIPine 5 MG TAB PO SCH (22:09)
[2025-02-22] MEDS: SUCRALFATE 1 GM TAB PO SCH (22:09)
[2025-02-22 22:54] VITALS: BP 118/60; TEMP 98.1; O2SAT 94
[2025-02-22 23:09] VITALS: BP 116/58; TEMP 98.1; O2SAT 94
[2025-02-23] VITALS (9 sets, daily range): BP systolic 112–134; BP diastolic 58–69; TEMP 97.7–100; O2SAT 94–96
[2025-02-23] MEDS: INSULIN LISPRO (NovoLOG) PER UNIT SC SCH
[2025-02-23] MEDS: PIPERACILLIN/TAZOBACTAM SOD 3.375 GM in DEXTROSE 5% (D5W) ADV/MINI-BAG 50 ML IV SCH (01:33)
[2025-02-23] MEDS: ACETAMINOPHEN 325 MG TAB PO PRN (01:54)
[2025-02-23] MEDS: MAG SULF 1GM/100ML (MAG RUN) 1 GM in IV 1 EA IV SCH (02:36)
[2025-02-23 03:37] LABS: CALCIUM LEVEL 7.2 MG/DL (8.3-10.6); CARBON DIOXIDE LEVEL 22.0 MMOL/L (20-31); CHLORIDE LEVEL 109.0 MMOL/L (98-107); CREATININE FOR GFR 0.81 MG/DL (0.55-1.30); GLOMERULAR FILTRATION RATE 72.9 (>32); POTASSIUM SERUM 3.3 MMOL/L (3.5-5.1); SODIUM LEVEL 146.0 MMOL/L (136-145)
[2025-02-23] MEDS: LR 1,000 ML IV SCH (06:12)
[2025-02-23] MEDS: POTASSIUM CHLORIDE 10MEQ SR TABLET PO ONE ×2 (06:13→18:29)
[2025-02-23 06:43] LABS: PLATELET COUNT, AUTOMATED 374 10^3/uL (150-450)
[2025-02-23 07:15] LABS: ALT/SGPT < 9 U/L (7.0-40); AST/SGOT 13 U/L (<34); CALCIUM LEVEL 7.5 MG/DL (8.3-10.6); CARBON DIOXIDE LEVEL 23 MMOL/L (20-31); CHLORIDE LEVEL 108 MMOL/L (98-107); CREATININE FOR GFR 0.81 MG/DL (0.55-1.30); GLOMERULAR FILTRATION RATE 72.9 (>32); MAGNESIUM LEVEL 1.8 MG/DL (1.8-2.4); POTASSIUM SERUM 3.1 MMOL/L (3.5-5.1); SODIUM LEVEL 146 MMOL/L (136-145)
[2025-02-23] MEDS: METOPROLOL SUCC. 25 MG *XL* TAB PO SCH (08:45)
[2025-02-23] MEDS: PANTOPRAZOLE 40MG TAB PO SCH (08:45)
[2025-02-23] MEDS: DONEPEZIL 5 MG TAB PO SCH (08:46)
[2025-02-23] MEDS: SERTRALINE HCL 50 MG TAB PO SCH (08:46)
[2025-02-23 11:13] LABS: MAGNESIUM LEVEL 1.6 MG/DL (1.8-2.4)
[2025-02-23 11:15] LABS: CALCIUM LEVEL 7.5 MG/DL (8.3-10.6); CARBON DIOXIDE LEVEL 24.0 MMOL/L (20-31); CHLORIDE LEVEL 110.0 MMOL/L (98-107); CREATININE FOR GFR 0.84 MG/DL (0.55-1.30); GLOMERULAR FILTRATION RATE 69.8 (>32); POTASSIUM SERUM 3.4 MMOL/L (3.5-5.1); SODIUM LEVEL 147.0 MMOL/L (136-145)
[2025-02-23] MEDS: FERROUS SULFATE 325 MG TAB PO SCH (12:44)
[2025-02-23] MEDS: ASPIRIN 81 MG ENTERIC TABLET PO SCH (12:44)
[2025-02-23 14:39] LABS: KETONE, URINE AUTO RFX TRACE mg/dL (NEGATIVE); LEUKOCYTE ESTERASE UR AUTO RFX NEGATIVE (NEGATIVE); NITRITE, URINE AUTO RFX NEGATIVE (NEGATIVE); RBC, URINE AUTO RFX 0 /HPF (0-3); SQUAM EPITHELIAL CELL UR AURFX 0 /HPF (0-6); URIC ACID CRYSTALS RFX SMALL; WBC, URINE AUTO RFX 2 /HPF (0-3)
[2025-02-23 17:36] LABS: CALCIUM LEVEL 7.5 MG/DL (8.3-10.6); CARBON DIOXIDE LEVEL 24.0 MMOL/L (20-31); CHLORIDE LEVEL 110.0 MMOL/L (98-107); CREATININE FOR GFR 0.82 MG/DL (0.55-1.30); GLOMERULAR FILTRATION RATE 71.8 (>32); POTASSIUM SERUM 3.0 MMOL/L (3.5-5.1); SODIUM LEVEL 148.0 MMOL/L (136-145)
[2025-02-23] MEDS: KCL 10MEQ/100ML SWI (KRUN) 10 MEQ in IV 1 EA IV ONE (18:30)
[2025-02-23] MEDS: CALCIUM GLUCONATE 1,000 MG in DEXTROSE 5% (D5W) MINI-BAG PLU 100 ML IV ONE (20:16)
[2025-02-23 23:41] LABS: CALCIUM LEVEL 7.3 MG/DL (8.3-10.6); CARBON DIOXIDE LEVEL 25.0 MMOL/L (20-31); CHLORIDE LEVEL 111.0 MMOL/L (98-107); CREATININE FOR GFR 0.91 MG/DL (0.55-1.30); GLOMERULAR FILTRATION RATE 63.4 (>32); MAGNESIUM LEVEL 1.6 MG/DL (1.8-2.4); POTASSIUM SERUM 3.6 MMOL/L (3.5-5.1); SODIUM LEVEL 148.0 MMOL/L (136-145)
[2025-02-24] VITALS (7 sets, daily range): BP systolic 128–137; BP diastolic 58–83; TEMP 98.8–99.5; O2SAT 93–96
[2025-02-24] MEDS: MAG SULF 1GM/100ML (MAG RUN) 1 GM in IV 1 EA IV ONE (01:54)
[2025-02-24 06:23] LABS: CALCIUM LEVEL 7.2 MG/DL (8.3-10.6); CARBON DIOXIDE LEVEL 24.0 MMOL/L (20-31); CHLORIDE LEVEL 112.0 MMOL/L (98-107); CREATININE FOR GFR 0.9 MG/DL (0.55-1.30); GLOMERULAR FILTRATION RATE 64.2 (>32); MAGNESIUM LEVEL 2.0 MG/DL (1.8-2.4); POTASSIUM SERUM 3.8 MMOL/L (3.5-5.1); SODIUM LEVEL 148.0 MMOL/L (136-145)
[2025-02-24] MEDS: CALCIUM CARBONATE 500 MG CHEW U/D PO SCH (08:27)
[2025-02-24] MEDS: POTASSIUM CHLORIDE 10MEQ SR TABLET PO SCH (08:28)
[2025-02-24 11:23] LABS: BASO # 0.0 10^3/uL (0.0-0.2); BASO % 0.3 % (0.0-1.0); EOS # 0.1 10^3/uL (0.0-0.5); EOS % 0.5 % (0.0-3.0); LYMPH # 1.2 10^3/uL (1.5-5.0); LYMPH % 8.9 % (24.0-44.0); MONO # 0.8 10^3/uL (0.0-0.8); MONO % 5.9 % (2.0-8.0); NEUTROPHILS # 11.1 10^3/uL (1.5-8.5); NEUTROPHILS % 83.5 % (36.0-66.0); PLATELET COUNT, AUTOMATED 433 10^3/uL (150-450)
[2025-02-24] MEDS: INSULIN LISPRO (NovoLOG) PER UNIT SC SCH ×2 (20:58→20:59)
[2025-02-25] VITALS: BP 123/50; TEMP 98.4; O2SAT 93
[2025-02-25 05:21] VITALS: BP 130/58; TEMP 97.7; O2SAT 94
[2025-02-25 06:19] LABS: BASO # 0.0 10^3/uL (0.0-0.2); BASO % 0.4 % (0.0-1.0); EOS # 0.1 10^3/uL (0.0-0.5); EOS % 1.4 % (0.0-3.0); LYMPH # 1.4 10^3/uL (1.5-5.0); LYMPH % 14.3 % (24.0-44.0); MONO # 0.8 10^3/uL (0.0-0.8); MONO % 8.1 % (2.0-8.0); NEUTROPHILS # 7.6 10^3/uL (1.5-8.5); NEUTROPHILS % 75.1 % (36.0-66.0); PLATELET COUNT, AUTOMATED 466 10^3/uL (150-450)
[2025-02-25 06:42] LABS: CALCIUM LEVEL 7.4 MG/DL (8.3-10.6); CARBON DIOXIDE LEVEL 23.0 MMOL/L (20-31); CHLORIDE LEVEL 115.0 MMOL/L (98-107); CREATININE FOR GFR 0.81 MG/DL (0.55-1.30); GLOMERULAR FILTRATION RATE 72.4 (>32); POTASSIUM SERUM 4.6 MMOL/L (3.5-5.1); SODIUM LEVEL 149.0 MMOL/L (136-145)
[2025-02-25 07:05] LABS: C REACTIVE PROTEIN QUANTITATIV 12.94 MG/DL (<1.0)
[2025-02-25] MEDS: INSULIN LISPRO (NovoLOG) PER UNIT SC SCH ×2 (07:30)
[2025-02-25 08:42] VITALS: BP 135/66
[2025-02-25 12:00] VITALS: BP 131/64; TEMP 97.2; O2SAT 94
[2025-02-25] MEDS ORDERED: AMOX500T2 PO (14:24)
[2025-02-25] MEDS ORDERED: PROBCAP2 PO (14:24)
[2025-02-25] MEDS ORDERED: AUGMENTIN 875 MG TAB PO SCH (18:00)
== END 2025-02-25 15:18 | disposition home health service (06) | DRG 863 ==
LOC: M ED 11:32 → M ED INP 19:19 → M MSPAV 21:12
PROVIDERS: ADMIT Internal Medicine; ATTEND Student in an Organized Health Care Education/Training Program
PROC: 30233N1 Transfusion of Nonautologous Red Blood Cells into Peripheral Vein, Percutaneous Approach (ICD-10-PCS; principal; 2025-02-22)
DX: T81.40XA Infection following a procedure, unspecified, initial encounter (principal); D50.9 Iron deficiency anemia, unspecified; E87.6 Hypokalemia; I10 Essential (primary) hypertension; E11.9 Type 2 diabetes mellitus without complications; E78.00 Pure hypercholesterolemia, unspecified; I48.91 Unspecified atrial fibrillation; J44.9 Chronic obstructive pulmonary disease, unspecified; F32.A Depression, unspecified; M81.0 Age-related osteoporosis without current pathological fracture; Z86.73 Personal history of transient ischemic attack (TIA), and cerebral infarction without residual deficits; Z98.41 Cataract extraction status, right eye; Z98.42 Cataract extraction status, left eye; Z90.49 Acquired absence of other specified parts of digestive tract; Z87.891 Personal history of nicotine dependence; Z79.82 Long term (current) use of aspirin; Z79.01 Long term (current) use of anticoagulants; Z79.84 Long term (current) use of oral hypoglycemic drugs; Z79.899 Other long term (current) drug therapy